=== PATIENT | female | born 1995 | race Caucasian/White ===

== ENCOUNTER 2022-09-26 05:30 | Emergency (ER) | payer SELFPAY ==
[2022-09-26 06:46] LABS: Absolute Lymphocytes (CBC) 1.6 K/uL (0.7-4.9); Hematocrit 38.5 % (36.0-45.0); Lymphocytes % 14.4 % (15.3-44.8); MCV 85.6 fL (80-100)
[2022-09-26 07:07] LABS: Specific Gravity > 1.030 (1.005-1.030); Urine Bacteria None Seen /HPF (<20); Urine Bilirubin NEGATIVE (Negative); Urine Blood 3+ (OVER) (Negative); Urine Clarity Extremely Turbid (Clear); Urine Color Dark-Brown (Yellow); Urine Glucose NEGATIVE (Negative); Urine Mucus 4+ /HPF (None Seen); Urine Protein 1+ (Negative); Urine RBC >50 /HPF (None Seen); Urine Urobilinogen Normal (Normal)
[2022-09-26 07:21] LABS: Potassium 3.5 mEq/L (3.5-5.1)
--- NOTE | 2022-09-26 07:44 | RAD REPORT ---
EXAM DESCRIPTION: US - Transvaginal OB - 09/26/2022 7:27 am CLINICAL HISTORY: VAGINAL BLEEDING Early COMPARISON: No comparisons FINDINGS: Mildly prominent uterine size. Endometrium is thickened measures up to 2.7-3.4 cm. No defi nitive gestational sac seen. The maternal adnexa and ovaries are within normal limits. Normal Doppler blood flow was demonstrated to both ovaries. No significant pelvic ascites. IMPRESSION: Thickened endometrial stripe without definitive IUP seen at this time. In the setting of a positive HCG level, this would be considered of unknown location. Interval follow-up pelvic sonography in 7-10 days and serial HCG levels would be recommended.
--- NOTE | 2022-09-26 08:04 | EDPHYS ---
Physician Documentation [facility] Name: Kendra Wilcox Age: 27 yrs Sex: Female : 1995 Arrival Date: 09/26/2022 Time: 05:30 Bed 8 Private MD: ED Physician Rahul Henry HPI: 09/26 07:10 This 27 yrs old Female presents to ER via Wheelchair with complaints of Vaginal rt Bleeding, 13 WEEKS . 07:10 Patient is a G4, P3 currently at 13 weeks gestation who presents to the ED with vaginal rt bleeding. Patient reported some vaginal spotting yesterday. Patient woke up this morning about 1 hour prior to arrival and "a pool of blood." The patient reports a mild abdominal cramping and states that he feels lightheaded which he attributes to the blood loss. Denies other acute complaints at this time. Patient has had an ultrasound for this , reports no complications. Symptoms are moderate severity, no other aggravating alleviating factors. 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 - Social history:: Smoking status: Patient denies any tobacco usage or history of. - Family history:: not pertinent. ROS: 07:10 Positive for vaginal bleeding, Negative for vaginal discharge. rt 07:10 Constitutional: Negative for fever, chills, and weight loss, Cardiovascular: Negative for chest pain, palpitations, and edema, Respiratory: Negative for shortness of breath, cough, wheezing, and pleuritic chest pain, Abdomen/GI: Negative for abdominal pain, nausea, vomiting, diarrhea, and constipation, Skin: Negative for injury, rash, and discoloration, Psych: Negative for depression, anxiety, suicide ideation, homicidal ideation, and hallucinations. 07:10 Neuro: Positive for dizziness, Negative for syncope. Exam: 07:10 Constitutional: This is a well developed, well nourished patient who is awake, alert, rt and in no acute distress. Head/Face: Normocephalic, atraumatic. Chest/axilla: Normal chest wall appearance and motion. Nontender with no deformity. No lesions are appreciated. Cardiovascular: Regular rate and rhythm with a normal S1 and S2. No gallops, murmurs, or rubs. Normal PMI, no JVD. No pulse deficits. Respiratory: Lungs have equal breath sounds bilaterally, clear to auscultation and percussion. No rales, rhonchi or wheezes noted. No increased work of breathing, no retractions or nasal flaring. Abdomen/GI: Soft, non-tender, with normal bowel sounds. No distension or tympany. No guarding or rebound. No evidence of tenderness throughout. Skin: Warm, dry with normal turgor. Normal color with no rashes, no lesions, and no evidence of cellulitis. MS/ Extremity: Pulses equal, no cyanosis. Neurovascular intact. Full, normal range of motion. Neuro: Awake and alert, GCS 15, oriented to person, place, time, and situation. Cranial nerves II-XII grossly intact. Motor strength 5/5 in all extremities. Sensory grossly intact. Cerebellar exam normal. Normal gait. Psych: Awake, alert, with orientation to person, place and time. Behavior, mood, and affect are within normal limits. Vital Signs: 06:25 BP 106 / 71; Pulse 69; Resp 17; Temp 97.7; Pulse Ox 100% ; Weight 70.76 kg; Height 5 vc1 ft. 2 in. ; 07:01 BP 100 / 61; Pulse 71; Resp 19; Pulse Ox 99% on R/A; kd3 09:10 BP 99 / 65; Pulse 78; Resp 18; Temp 97.8; Pulse Ox 98% on R/A; ph 06:25 Body Mass Index 28.53 (70.76 kg, 157.48 cm) vc1 MDM: 06:15 Patient medically screened. rt 07:26 Transition of care: Care assumed from Rodney Crews MD. ms3 08:04 Differential diagnosis: threatened Ab, complete Ab, missed Ab, nonspecific abdominal ms3 pain. Data reviewed: vital signs, nurses notes, lab test result(s), radiologic studies, and as a result, I will discharge patient. Historians other than the Patient: Spouse/Significant Other: Patient's . ED course: Discussed labs, ultrasound results with patient and her . 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 Recommended repeat ultrasound in 7 days. Patient and her understand and agree with plan. All questions were answered. Return precautions discussed include worsening symptoms, or any other concerns. On reevaluation patient is alert and oriented x4, in no apparent distress, nontoxic-appearing, speaking full sentences. 09/26 06:20 Order name: Abo/rh Typing; Complete Time: 07:47 rt 09/26 06:20 Order name: Basic Metabolic Panel; Complete Time: 07:47 rt 09/26 06:20 Order name: CBC with Diff; Complete Time: 07:14 rt 09/26 06:20 Order name: Quantitative Hcg; Complete Time: 07:47 rt 09/26 06:20 Order name: Urinalysis w/ reflexes; Complete Time: 07:14 rt 09/26 06:20 Order name: US Transvaginal Ob; Complete Time: 07:47 rt 09/26 06:20 Order name: IV Saline Lock; Complete Time: 06:51 rt 09/26 06:20 Order name: Labs collected and sent; Complete Time: 06:51 rt 09/26 06:20 Order name: NPO; Complete Time: 06:51 rt Administered Medications: No medications were administered Disposition Summary: 09/26/22 08:04 Discharge Ordered Location: Home ms3 Condition: Stable ms3 Diagnosis - Complete or unspecified spontaneous without complication ms3 - Abnormal uterine and vaginal bleeding, unspecified ms3 Followup: ms3 - With: Private Physician - When: 2 - 3 days - Reason: Recheck today's complaints Discharge Instructions: - Discharge Summary Sheet ms3 - Miscarriage ms3 Forms: - Medication Reconciliation Form ms3 - Thank You Letter ms3 - Antibiotic Education ms3 - Prescription Opioid Use ms3 - Patient Portal Instructions ms3 Signatures: Dispatcher [employer] EDRahul Cordova DO DO ms3 Erin Schwab RN RN vc1 Rodney Crews MD MD rt
--- NOTE | 2022-09-26 08:04 | ER ---
Nurse's Notes [facility] Name: Kendra Wilcox Age: 27 yrs Sex: Female : 1995 Arrival Date: 09/26/2022 Time: 05:30 Bed 8 Private MD: Diagnosis: Complete or unspecified spontaneous without complication;Abnormal uterine and vaginal bleeding, unspecified Presentation: 09/26 06:25 Chief complaint: Patient states: I woke up bleeding really heavy, passing clots and vc1 cramping pretty bad. Coronavirus screen: Vaccine status: Patient reports receiving the 2nd dose of the covid vaccine. Moderna Client denies travel out of the [place] in the last 14 days. At this time, the client does not indicate any symptoms associated with coronavirus-19. Ebola Screen: Patient negative for fever greater than or equal to 101.5 degrees Fahrenheit, and additional compatible Ebola Virus Disease symptoms Patient denies exposure to infectious person. Patient denies travel to an Ebola-affected area in the 21 days before illness onset. No symptoms or risks identified at this time. Initial Sepsis Screen: Does the patient meet any 2 criteria? No. Patient's initial sepsis screen is negative. Does the patient have a suspected source of infection? No. Patient's initial sepsis screen is negative. Risk Assessment: Do you want to hurt yourself or someone else? Patient reports no desire to harm self or others. Note pt visiting from [place]. Onset of symptoms was September 26, 2022 at 04:30. 06:25 Method Of Arrival: Wheelchair vc1 06:25 Acuity: ADAMS 3 vc1 Triage Assessment: 06:31 General: Appears in no apparent distress. uncomfortable, Behavior is cooperative, vc1 crying. Pain: Complains of pain in right lower quadrant and left lower quadrant Pain does not radiate. Quality of pain is described as cramping Pain began 2 hours ago. Is intermittent. EENT: No deficits noted. No signs and/or symptoms were reported regarding the EENT system. Neuro: Level of Consciousness is awake, alert, obeys commands, Oriented to person, place, time, situation, Appropriate for age. Cardiovascular: No deficits noted. Respiratory: Airway is patent Respiratory effort is even, unlabored, Respiratory pattern is regular, symmetrical. GI: No deficits noted. No signs and/or symptoms were reported involving the gastrointestinal system. : Reports vaginal bleeding that is bright red, with clots, heavy flow. Derm: No deficits noted. No signs and/or symptoms reported regarding the dermatologic system. Musculoskeletal: No deficits noted. No signs and/or symptoms reported regarding the musculoskeletal system. 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 - Social history:: Smoking status: Patient denies any tobacco usage or history of. - Family history:: not pertinent. Screenin:35 [facility] ED Fall Risk Assessment (Adult) History of falling in the last 3 months, vc1 including since admission No falls in past 3 months (0 pts) Confusion or Disorientation No (0 pts) Intoxicated or Sedated No (0 pts) Impaired Gait No (0 pts) Mobility Assist Device Used No (0 pt) Altered Elimination No (0 pt) Score/Fall Risk Level 0 - 2 = Low Risk Oriented to surroundings, Maintained a safe environment, Educated pt \T\ family on fall prevention, incl call for assistance when getting out of bed. Abuse screen: Denies threats or abuse. Nutritional screening: No deficits noted. Tuberculosis screening: No symptoms or risk factors identified. Assessment: 06:54 General: Appears uncomfortable, Behavior is calm, cooperative. Pain: Complains of pain kd3 in left lower quadrant and right lower quadrant. Neuro: Level of Consciousness is awake, alert, obeys commands, Oriented to person, place, time, situation. Cardiovascular: Patient's skin is warm and dry. 08:57 Reassessment: Pt given d/c paperwork, upon standing a large amount of blood ran down ph legs, multiple large clots noted, pt appeared pale and c/o dizziness, assisted pt into bed, placed into a dry brief w/ pad in place,rechecked vitals, VSS. Vital Signs: 06:25 BP 106 / 71; Pulse 69; Resp 17; Temp 97.7; Pulse Ox 100% ; Weight 70.76 kg; Height 5 vc1 ft. 2 in. ; 07:01 BP 100 / 61; Pulse 71; Resp 19; Pulse Ox 99% on R/A; kd3 09:10 BP 99 / 65; Pulse 78; Resp 18; Temp 97.8; Pulse Ox 98% on R/A; ph 06:25 Body Mass Index 28.53 (70.76 kg, 157.48 cm) vc1 ED Course: 05:31 Patient arrived in ED. ag3 05:37 Rodney Crews MD is Attending Physician. rt 06:15 Vonda Johnson, GLENN is Primary Nurse. kd3 06:28 Triage completed. vc1 06:32 Arm band placed on right wrist. vc1 06:35 Patient has correct armband on for positive identification. Placed in gown. Bed in low vc1 position. Call light in reach. Pulse ox on. NIBP on. 06:51 Abo/rh Typing Sent. kd3 06:51 Basic Metabolic Panel Sent. kd3 06:51 Urinalysis w/ reflexes Sent. kd3 06:51 Quantitative Hcg Sent. kd3 06:55 Inserted saline lock: 20 gauge in right antecubital area, using aseptic technique. kd3 Blood collected. 07:26 Attending Physician role handed off by Rodney Crews MD ms3 07:26 Rahul Henry DO is Attending Physician. ms3 07:29 Transvaginal Ob In Process Unspecified. EDMS 09:11 No provider procedures requiring assistance completed. IV discontinued, intact, ph bleeding controlled, No redness/swelling at site. Pressure dressing applied. Administered Medications: No medications were administered Medication: 06:35 VIS not applicable for this client. vc1 Outcome: 08:04 Discharge ordered by . ms3 09:13 Discharged to home via wheelchair, with significant other. ph 09:13 Condition: stable 09:13 Discharge instructions given to patient, significant other, Instructed on discharge instructions, follow up and referral plans. Demonstrated understanding of instructions, follow-up care. 09:13 Patient left the ED. ph Signatures: Dispatcher [employer] EDRI Rina Wallace RN RN Julia Do ag3 Rahul Henry DO DO ms3 Vonda Johnson RN RN kd3 Erin Schwab RN RN vc1 Rodney Crews MD MD rt
[2022-09-26 09:38] VITALS: BP 99/65; TEMP 97.8; O2SAT 98
== END 2022-09-26 09:13 | disposition home or self-care (01) ==
LOC: ER 05:30
DX: O03.6 Delayed or excessive hemorrhage following complete or unspecified spontaneous abortion (principal); Z3A.13 13 weeks gestation of pregnancy
CPT/HCPCS: 36415; 76817; 80048; 81001; 84702; 85025; 86900; 86901; 99284